=== PATIENT | male | born 1995 | race Caucasian/White ===

== ENCOUNTER 2022-03-24 13:18 | Outpatient (CLI) | payer BC, SELFPAY ==
[2022-03-24 15:06] LABS: Strep A DNA Probe* NOT DETECTED (Not Detectd)
== END 2022-03-24 13:19 | disposition home or self-care (01) ==
LOC: NFLDUCREF 13:18
PROVIDERS: Visit Provider Registered Nurse
DX: J02.9 Acute pharyngitis, unspecified (principal)
CPT/HCPCS: 87651